=== PATIENT | male | born 2000 ===

== ENCOUNTER 2019-11-15 13:34 | Outpatient (REF) | payer OTHER, SELFPAY ==
[2019-11-17 21:29] LABS: SARS-CoV-2 RNA Undetected (Undetected); SARS-CoV-2 Specimen Source Nasopharynx
== END 2019-11-15 13:54 ==
LOC: NCHCN 13:34
PROVIDERS: Visit Provider Nurse Practitioner Family
DX: Z20.828 Contact with and (suspected) exposure to other viral communicable diseases (principal)
CPT/HCPCS: U0003